=== PATIENT | male | born 1965 | race Caucasian/White ===

== ENCOUNTER 2016-10-03 18:33 | Emergency (ER) | payer OTHER ==
[~2016-10-03] VITALS: Ht 182.9 cm; Wt 97.5 kg
[2016-10-03 19:01] LABS: HEMATOCRIT 45.8 % (38.0-50.0); MCH 30.5 PG (29.0-34.0); MCHC 35.4 G/DL (30.0-36.0); MCV 86.1 FL (86-99); MEAN PLAT.VOLUME 9.9 uM^3 (9.0-12.4); PLATELET COUNT 229 K/uL (156-360); RBC DIS.WIDTH-CV 12.3 % (11.8-14.6); RBC DIS.WIDTH-SD 38.8 % (39-53); RED BLOOD COUNT 5.32 M/uL (4.00-5.50); WHITE BLOOD COUNT 7.1 K/uL (4.1-10.2)
[2016-10-03 19:12] LABS: CHLORIDE 105 mEq/L (99-109); POTASSIUM 3.6 mEq/L (3.7-5.4); SODIUM 139 mEq/L (136-147)
[2016-10-03 19:15] LABS: GLUCOSE 110 mg/dL (70-99)
[2016-10-03 19:16] LABS: ANION GAP 14 MEQ/L (2-14)
[2016-10-03 19:17] LABS: TOTAL BILIRUBIN 0.8 mg/dL (0.0-1.0)
[2016-10-03 19:18] LABS: ALKALINE PHOSPHATASE 79 IU/L (3-129); GFR ESTIMATE (CALCULATED) > 59 mL/min/
[2016-10-03 19:20] LABS: UREA NITROGEN (BUN) 11 mg/dL (9-23)
[2016-10-03] MEDS ORDERED: LISINOPRIL20 MG PO (19:21)
[2016-10-03] MEDS ORDERED: SIMVASTATIN10 MG PO (19:21)
[2016-10-03 19:22] LABS: LIPASE 32 U/L (1.0-51.0)
[2016-10-03 21:22] LABS: ADD MIUA? NO; BILIRUBIN NEGATIVE; BLOOD NEGATIVE; COLOR YELLOW ((YELLOW)); GLUCOSE (STRIP) NEGATIVE; KETONES NEGATIVE; LEUKOCYTES NEGATIVE; NITRITE NEGATIVE; PROTEIN (STRIP) NEGATIVE; SPECIFIC GRAVITY 1.019 (1.000-1.030); UCUL ADDED? NO
[2016-10-03] MEDS ORDERED: NORCO 10/3251 TABLET PO (22:01)
[2016-10-03] MEDS ORDERED: ZOFRAN ODT4 MG PO (22:01)
[2016-10-03] MEDS ORDERED: MOTRIN800 MG PO (22:01)
[2016-10-03 22:17] VITALS: BP 120/72
== END 2016-10-03 22:18 | disposition home or self-care (01) ==
LOC: EME 18:33
PROVIDERS: Physician Assistant
DX: N28.1 Cyst of kidney, acquired (principal); Q62.39 Other obstructive defects of renal pelvis and ureter; R11.2 Nausea with vomiting, unspecified; I10 Essential (primary) hypertension
CPT/HCPCS: 74177; 80053; 81003; 83605; 83690; 85027; 99281; 99285; J1885; J2405; J3010; J7030

== ENCOUNTER 2017-01-28 22:19 | Emergency (ER) | payer OTHER ==
[~2017-01-28] VITALS: Ht 182.9 cm; Wt 98.5 kg
[~2017-01-28 22:19] MED LIST: LISINOPRIL20 MG PO; MOTRIN800 MG PO; NORCO 10/3251 TABLET PO; SIMVASTATIN10 MG PO; ZOFRAN ODT4 MG PO
[2017-01-28] MEDS ORDERED: PERCOCET 5/31 TABLET PO (23:01)
[2017-01-28] MEDS ORDERED: ERYTHROMYCIN O3.5 GM BOTH EYES (23:01)
[2017-01-28 23:18] VITALS: BP 151/96
== END 2017-01-28 23:20 | disposition home or self-care (01) ==
LOC: EME 22:19
DX: H16.133 Photokeratitis, bilateral (principal); W89.8XXA Exposure to other man-made visible and ultraviolet light, initial encounter
CPT/HCPCS: 99281; 99284